=== PATIENT | female | born 1955 | race Caucasian/White ===

== ENCOUNTER 2023-02-10 13:01 | Inpatient (IN) ==
[2023-02-10] MEDS ORDERED: NS 0.9% 500 ml BAG 500 ML IV ONE (19:53)
[2023-02-10] MEDS ORDERED: Vancomycin 750 MG in NS 0.9% 250 ml 250 ML IVPB ONE (19:57)
[2023-02-10] MEDS ORDERED: cefTRIAXone 1 gm/50 mL D5W 1 GM/50 ML BAG IV SCH (20:00)
[2023-02-10] MEDS ORDERED: Vancomycin 750 MG in NS 0.9% 250 ML IVPB ONE (20:00)
[2023-02-10] MEDS ORDERED: Vancomycin per Pharmacy 1 EA NOTE FOLLOW UP SCH (20:00)
[2023-02-10 20:19] LABS: Osmolality Serum 256 mOsm/kg (275-295)
[2023-02-10 20:36] LABS: Anion Gap 10 mmol/L (2-16); Blood Urea Nitrogen 11 mg/dL (6-24); CO2 Carbon Dioxide 26 mmol/L (22-32); Chloride 88 mmol/L (101-111); Glucose 92 mg/dL (70-100); Potassium 3.5 mmol/L (3.5-5.0); Sodium 124 mmol/L (135-145)
[2023-02-10 20:58] LABS: Creatinine, Serum < 0.30 mg/dL (0.51-0.95); eGFR CKD-EPI 116.2 (>60)
[2023-02-10 20:58] LABS: Urine Appearance Cloudy; Urine Bilirubin Negative (Negative); Urine Blood 1+ (Negative); Urine Color Yellow; Urine Glucose Negative (Negative); Urine Ketones Negative (Negative); Urine Nitrite Negative (Negative); Urine Protein Negative (Negative); Urine Specific Gravity 1.013 (1.002-1.030); Urine Urobilinogen Negative (Negative)
[2023-02-10 21:15] LABS: Urine Bacteria Absent (Absent); Urine Red Blood Cell 2+(6-10/hpf) (Absent); Urine Squamous Epithelial Cell Present (Absent); Urine White Blood Cell 3+(>20/hpf) (Absent)
[2023-02-10 21:22] LABS: Urine Osmo 513 mOsm/kg (150-1150)
[2023-02-10] MEDS: Nystatin SUSPENSION 100,000 UNITS/ML UDC PO SCH (21:26)
[2023-02-10] MEDS: oxyCODONE/Acetamin 5/325 mg TAB PO SCH (21:47)
[2023-02-10 22:05] LABS: Blood Urea Nitrogen 10 mg/dL (6-24); CO2 Carbon Dioxide 25 mmol/L (22-32); Calcium 8.6 mg/dL (8.6-10.3); Chloride 91 mmol/L (101-111); Creatinine, Serum < 0.30 mg/dL (0.51-0.95); Glucose 96 mg/dL (70-100); Sodium 123 mmol/L (135-145); eGFR CKD-EPI 116.2 (>60)
[2023-02-10 22:06] LABS: Anion Gap 7 mmol/L (2-16)
[2023-02-11] MEDS: oxyCODONE/Acetamin 5/325 mg TAB PO SCH ×6 (03:06→23:25)
[2023-02-11] MEDS ORDERED: NS 0.9% 1000 ml BAG 1,000 ML IV SCH (04:00)
[2023-02-11] MEDS: Vancomycin 1000 MG in NS 0.9% 250 ML IVPB SCH ×3 (04:31→23:23)
[2023-02-11 04:57] LABS: TSH Ultra Thyroid Stim Horm 1.11 mcIU/mL (0.34-5.60)
[2023-02-11 05:08] LABS: Folate 11.74 ng/mL (5.90-24.80)
[2023-02-11 05:09] LABS: Vitamin B12 1252 pg/mL (180-914)
[2023-02-11 06:06] LABS: Hematocrit 21.3 % (35-45); Hemoglobin 7.3 g/dL (11.5-14.3); Mean Corpuscular Hemoglobin 36.3 pg (27-33); Mean Corpuscular Volume 106.7 fL (80-97); Mean Platelet Volume 7.7 fL (7.5-11.2); Platelet Count 171 10^3/uL (150-450); Red Cell Distribution Width 16.3 % (12-17)
[2023-02-11 06:10] LABS: Anion Gap 8 mmol/L (2-16); Blood Urea Nitrogen 10 mg/dL (6-24); CO2 Carbon Dioxide 25 mmol/L (22-32); Calcium 8.3 mg/dL (8.6-10.3); Chloride 90 mmol/L (101-111); Creatinine, Serum < 0.30 mg/dL (0.51-0.95); Glucose 105 mg/dL (70-100); Magnesium 1.1 mg/dL (1.9-2.7); Potassium 3.2 mmol/L (3.5-5.0); Sodium 123 mmol/L (135-145); eGFR CKD-EPI 116.2 (>60)
[2023-02-11] MEDS ORDERED: Magnesium Sulf 4 GM/100 ML IV 4,000 MG/100 ML BAG IVPB ONE (06:17)
[2023-02-11] MEDS ORDERED: Potassium Chlor 20 meq TAB.ER PO SCH (07:00)
[2023-02-11] MEDS: Nystatin SUSPENSION 100,000 UNITS/ML UDC PO SCH ×4 (09:19→23:15)
[2023-02-11] MEDS: Penicillin G Potassium IV 3,000,000 UNITS in NS 0.9% 100 ml BAG 100 ML IVPB SCH ×2 (11:17→15:44)
[2023-02-11] MEDS: KCL 20 MEQ/100 ML IVPREMIX 20 MEQ/100 ML BAG IV SCH ×2 (11:20→13:32)
[2023-02-11 16:12] LABS: Blood Urea Nitrogen 10 mg/dL (6-24); CO2 Carbon Dioxide 24 mmol/L (22-32); Calcium 8.7 mg/dL (8.6-10.3); Chloride 92 mmol/L (101-111); Creatinine, Serum 0.34 mg/dL (0.51-0.95); Glucose 100 mg/dL (70-100); Sodium 124 mmol/L (135-145); eGFR CKD-EPI 112.7 (>60)
[2023-02-11 16:13] LABS: Anion Gap 8 mmol/L (2-16)
[2023-02-11] MEDS ORDERED: Iohexol 350 (CONTRAST) 500 ML MDV IV ONE (16:39)
[2023-02-11] MEDS: Enoxaparin 60 MG/0.6 ML SYR SUBCUT SCH (17:26)
[2023-02-11] MEDS ORDERED: cefTRIAXone 2 gm/50 mL D5W 2 GM/50 ML BAG IV SCH (20:00)
[2023-02-11] MEDS: cefTRIAXone 2 gm/50 mL D5W 2 GM/50 ML BAG IV SCH (20:14)
[2023-02-11] MEDS ORDERED: Vancomycin Trough Check NOTE FOLLOW UP ONE (20:30)
[2023-02-11] MEDS ORDERED: Vancomycin 1000 MG in NS 0.9% 250 ML IVPB SCH (21:00)
[2023-02-12] MEDS: oxyCODONE/Acetamin 5/325 mg TAB PO SCH ×6 (01:55→22:37)
[2023-02-12] MEDS: Enoxaparin 60 MG/0.6 ML SYR SUBCUT SCH ×2 (04:39→17:27)
[2023-02-12] MEDS: Vancomycin 1000 MG in NS 0.9% 250 ML IVPB SCH ×3 (05:28→22:38)
[2023-02-12] MEDS: Nystatin SUSPENSION 100,000 UNITS/ML UDC PO SCH ×4 (09:25→22:43)
[2023-02-12 09:49] LABS: Calcium 8.6 mg/dL (8.6-10.3); Creatinine, Serum 0.44 mg/dL (0.51-0.95); Magnesium 1.8 mg/dL (1.9-2.7); Potassium 3.7 mmol/L (3.5-5.0); eGFR CKD-EPI 105.9 (>60)
[2023-02-12] MEDS ORDERED: Magnesium Sulfate 2 gm BAG 2 GM/50 ML BAG IVPB ONE (09:51)
[2023-02-12 09:59] LABS: Hematocrit 24.2 % (35-45); Hemoglobin 8.3 g/dL (11.5-14.3); Mean Corpuscular Hemoglobin 36.6 pg (27-33); Mean Corpuscular Hgb Conc 34.2 g/dL (31-36); Mean Corpuscular Volume 107.2 fL (80-97); Mean Platelet Volume 8.2 fL (7.5-11.2); Platelet Count 203 10^3/uL (150-450); Red Blood Count 2.26 10^6/uL (3.63-4.92); Red Cell Distribution Width 16.7 % (12-17); White Blood Count 27.1 10^3/uL (3.8-11.8)
[2023-02-12 10:50] LABS: ABS Basophils 0.1 10^3/uL (0.0-0.1); ABS Lymphocytes 0.4 10^3/uL (1.0-4.8); ABS Monocytes 0.7 10^3/uL (0.0-0.9); ABS Neutrophils 25.9 10^3/uL (1.5-7.6); Lymphocyte % 1.5 %
[2023-02-12] MEDS: cefTRIAXone 2 gm/50 mL D5W 2 GM/50 ML BAG IV SCH (22:00)
[2023-02-13] MEDS: oxyCODONE/Acetamin 5/325 mg TAB PO SCH ×4 (02:14→15:12)
[2023-02-13] MEDS ORDERED: Vancomycin Trough Check NOTE FOLLOW UP ONE (05:30)
[2023-02-13] MEDS: Enoxaparin 60 MG/0.6 ML SYR SUBCUT SCH ×2 (05:45→17:49)
[2023-02-13 06:33] LABS: ABS Eosinophils 0.1 10^3/uL (0.0-0.5); ABS Lymphocytes 0.3 10^3/uL (1.0-4.8); ABS Monocytes 0.6 10^3/uL (0.0-0.9); ABS Neutrophils 15.7 10^3/uL (1.5-7.6); ABS Nucleated RBC 0.01 10^3/ul; Eosinophil % 0.3 %; Hematocrit 23.6 % (35-45); Hemoglobin 8.1 g/dL (11.5-14.3); Lymphocyte % 2.1 %; Mean Corpuscular Hemoglobin 36.9 pg (27-33); Mean Corpuscular Hgb Conc 34.4 g/dL (31-36); Mean Corpuscular Volume 107.3 fL (80-97); Mean Platelet Volume 8.5 fL (7.5-11.2); Platelet Count 174 10^3/uL (150-450); Red Cell Distribution Width 16.9 % (12-17); White Blood Count 16.8 10^3/uL (3.8-11.8)
[2023-02-13 06:45] LABS: Calcium 8.8 mg/dL (8.6-10.3); Creatinine, Serum 0.55 mg/dL (0.51-0.95); Phosphorus 2.8 mg/dL (2.5-5.0); Potassium 3.8 mmol/L (3.5-5.0); eGFR CKD-EPI 100.4 (>60)
[2023-02-13] MEDS: Vancomycin 1000 MG in NS 0.9% 250 ML IVPB SCH ×2 (07:06→14:16)
[2023-02-13] MEDS ORDERED: Potassium Chloride LIQUID 20 MEQ/15 ML LIQUID PO ONE (10:15)
[2023-02-13] MEDS: Nystatin SUSPENSION 100,000 UNITS/ML UDC PO SCH ×6 (10:50→21:09)
[2023-02-13] MEDS ORDERED: oxyCODONE/Acetamin 5/325 mg TAB PO SCH (16:00)
[2023-02-13] MEDS: cefTRIAXone 2 gm/50 mL D5W 2 GM/50 ML BAG IV SCH (20:05)
[2023-02-14] MEDS: Vancomycin 1000 MG in NS 0.9% 250 ML IVPB SCH (02:01)
[2023-02-14] MEDS: oxyCODONE/Acetamin 5/325 mg TAB PO PRN ×3 (02:02→22:09)
[2023-02-14] MEDS: Enoxaparin 60 MG/0.6 ML SYR SUBCUT SCH ×2 (05:44→17:11)
[2023-02-14 06:32] LABS: Calcium 8.5 mg/dL (8.6-10.3); Creatinine, Serum 0.65 mg/dL (0.51-0.95); Potassium 3.9 mmol/L (3.5-5.0); eGFR CKD-EPI 96.4 (>60)
[2023-02-14 08:44] LABS: ABS Lymphocytes 0.3 10^3/uL (1.0-4.8); ABS Monocytes 0.7 10^3/uL (0.0-0.9); ABS Neutrophils 11.8 10^3/uL (1.5-7.6); Eosinophil % 0.2 %; Hematocrit 21.5 % (35-45); Hemoglobin 7.3 g/dL (11.5-14.3); Mean Corpuscular Hemoglobin 36.6 pg (27-33); Mean Corpuscular Volume 107.8 fL (80-97); Mean Platelet Volume 8.6 fL (7.5-11.2); Platelet Count 156 10^3/uL (150-450); Red Blood Count 1.99 10^6/uL (3.63-4.92); White Blood Count 12.9 10^3/uL (3.8-11.8)
[2023-02-14] MEDS: Nystatin SUSPENSION 100,000 UNITS/ML UDC PO SCH ×4 (11:00→22:10)
[2023-02-14] MEDS: cefTRIAXone 2 gm/50 mL D5W 2 GM/50 ML BAG IV SCH (22:03)
[2023-02-15] MEDS: Enoxaparin 60 MG/0.6 ML SYR SUBCUT SCH ×2 (04:57→17:44)
[2023-02-15 07:36] LABS: ABS Eosinophils 0.1 10^3/uL (0.0-0.5); ABS Lymphocytes 0.3 10^3/uL (1.0-4.8); ABS Monocytes 0.7 10^3/uL (0.0-0.9); Calcium 8.1 mg/dL (8.6-10.3); Creatinine, Serum 0.58 mg/dL (0.51-0.95); Eosinophil % 0.6 %; Hematocrit 22.9 % (35-45); Hemoglobin 7.8 g/dL (11.5-14.3); Lymphocyte % 2.6 %; Mean Corpuscular Hemoglobin 36.7 pg (27-33); Mean Corpuscular Hgb Conc 34.2 g/dL (31-36); Mean Corpuscular Volume 107.3 fL (80-97); Mean Platelet Volume 8.6 fL (7.5-11.2); Platelet Count 144 10^3/uL (150-450); Potassium 3.5 mmol/L (3.5-5.0); Red Blood Count 2.13 10^6/uL (3.63-4.92); Red Cell Distribution Width 16.9 % (12-17); White Blood Count 13.2 10^3/uL (3.8-11.8); eGFR CKD-EPI 99.1 (>60)
[2023-02-15] MEDS: Nystatin SUSPENSION 100,000 UNITS/ML UDC PO SCH ×4 (09:23→22:47)
[2023-02-15] MEDS ORDERED: Vancomycin Trough Check NOTE FOLLOW UP ONE (13:30)
[2023-02-15] MEDS: ceFAZolin 2 GM PREMIX 2 GM/50 ML BAG IV SCH ×2 (15:29→22:52)
[2023-02-15] MEDS: Oral Rinse (Biotene)(NF) 237 ML or 473 ML ORAL RINSE BTL MT SCH (22:50)
[2023-02-16] MEDS: Oral Rinse (Biotene)(NF) 237 ML or 473 ML ORAL RINSE BTL MT SCH (02:10)
[2023-02-16] MEDS: oxyCODONE/Acetamin 5/325 mg TAB PO PRN (02:17)
[2023-02-16] MEDS: Enoxaparin 60 MG/0.6 ML SYR SUBCUT SCH ×2 (05:59→18:25)
[2023-02-16] MEDS: ceFAZolin 2 GM PREMIX 2 GM/50 ML BAG IV SCH ×3 (06:09→22:39)
[2023-02-16 07:37] LABS: ABS Lymphocytes 0.6 10^3/uL (1.0-4.8); ABS Monocytes 0.8 10^3/uL (0.0-0.9); ABS Neutrophils 9.6 10^3/uL (1.5-7.6); Eosinophil % 0.3 %; Hematocrit 21.7 % (35-45); Hemoglobin 7.4 g/dL (11.5-14.3); Lymphocyte % 5.1 %; Mean Corpuscular Hemoglobin 36.9 pg (27-33); Mean Corpuscular Hgb Conc 34.4 g/dL (31-36); Mean Corpuscular Volume 107.3 fL (80-97); Mean Platelet Volume 8.2 fL (7.5-11.2); Platelet Count 146 10^3/uL (150-450); Red Blood Count 2.02 10^6/uL (3.63-4.92); Red Cell Distribution Width 17.1 % (12-17)
[2023-02-16 08:57] LABS: Calcium 7.9 mg/dL (8.6-10.3); Creatinine, Serum 0.66 mg/dL (0.51-0.95); Potassium 3.5 mmol/L (3.5-5.0); eGFR CKD-EPI 96.1 (>60)
[2023-02-16] MEDS: Nystatin SUSPENSION 100,000 UNITS/ML UDC PO SCH ×5 (10:24→22:39)
[2023-02-16] MEDS ORDERED: CMC:Saliva Substitute (NF) 1 SPRAY BTL MT PRN (10:55)
[2023-02-17] MEDS: Enoxaparin 60 MG/0.6 ML SYR SUBCUT SCH ×2 (05:19→15:45)
[2023-02-17] MEDS: Senna TAB 8.6 mg TAB PO SCH (05:20)
[2023-02-17] MEDS: Polyethylene Glycol 3350 17 GM PACKET PO SCH (05:20)
[2023-02-17 08:06] LABS: Creatinine, Serum 0.51 mg/dL (0.51-0.95); Magnesium 1.6 mg/dL (1.9-2.7); Potassium 3.5 mmol/L (3.5-5.0); eGFR CKD-EPI 102.2 (>60)
[2023-02-17] MEDS ORDERED: Magnesium Sulfate 2 gm BAG 2 GM/50 ML BAG IVPB ONE (08:12)
[2023-02-17] MEDS: ceFAZolin 2 GM PREMIX 2 GM/50 ML BAG IV SCH ×3 (08:28→22:56)
[2023-02-17] MEDS: Nystatin SUSPENSION 100,000 UNITS/ML UDC PO SCH ×3 (08:35→15:25)
[2023-02-17 09:30] LABS: Hematocrit 23.3 % (35-45); Hemoglobin 8.2 g/dL (11.5-14.3); Macrocytosis 2+; Mean Corpuscular Hemoglobin 39.9 pg (27-33); Mean Corpuscular Volume 113.9 fL (80-97); Mean Platelet Volume 8.4 fL (7.5-11.2); Platelet Count 139 10^3/uL (150-450); Red Blood Count 2.05 10^6/uL (3.63-4.92); Red Cell Distribution Width 17.3 % (12-17); Toxic Granulation 2+; White Blood Count 10.5 10^3/uL (3.8-11.8)
[2023-02-17 09:43] LABS: ABS Basophils 0.1 10^3/ul (0.0-0.1); ABS Lymphocytes 0.3 10^3/ul (1.0-4.8); ABS Monocytes 0.1 10^3/ul (0.0-0.9)
[2023-02-17] MEDS ORDERED: Magnesium Sulfate IV 1GM/100ML 1 GM/100 ML BAG IV ONE (10:12)
[2023-02-17] MEDS: CMC:Saliva Substitute (NF) 1 SPRAY BTL MT SCH ×13 (10:59→22:56)
[2023-02-17] MEDS: oxyCODONE/Acetamin 5/325 mg TAB PO PRN ×2 (15:21→23:09)
[2023-02-18] MEDS: CMC:Saliva Substitute (NF) 1 SPRAY BTL MT SCH ×20 (00:03→23:49)
[2023-02-18] MEDS: Enoxaparin 60 MG/0.6 ML SYR SUBCUT SCH ×2 (05:53→17:02)
[2023-02-18] MEDS: ceFAZolin 2 GM PREMIX 2 GM/50 ML BAG IV SCH ×3 (07:51→23:01)
[2023-02-18 08:40] LABS: ABS Lymphocytes 0.5 10^3/uL (1.0-4.8); ABS Monocytes 0.6 10^3/uL (0.0-0.9); ABS Neutrophils 9.7 10^3/uL (1.5-7.6); ABS Nucleated RBC 0.01 10^3/ul; Eosinophil % 0.4 %; Hematocrit 25.8 % (35-45); Lymphocyte % 4.7 %; Mean Corpuscular Hemoglobin 39.1 pg (27-33); Mean Corpuscular Volume 111.9 fL (80-97); Mean Platelet Volume 8.3 fL (7.5-11.2); Platelet Count 171 10^3/uL (150-450); Red Cell Distribution Width 17.5 % (12-17)
[2023-02-18 08:53] LABS: Calcium 8.3 mg/dL (8.6-10.3); Creatinine, Serum 0.56 mg/dL (0.51-0.95); Potassium 3.6 mmol/L (3.5-5.0)
[2023-02-18] MEDS: oxyCODONE/Acetamin 5/325 mg TAB PO PRN ×2 (09:11→23:07)
[2023-02-18] MEDS: Polyethylene Glycol 3350 17 GM PACKET PO SCH (09:11)
[2023-02-18] MEDS: Senna TAB 8.6 mg TAB PO SCH (09:12)
[2023-02-19] MEDS: CMC:Saliva Substitute (NF) 1 SPRAY BTL MT SCH ×13 (00:49→16:26)
[2023-02-19] MEDS ORDERED: Enoxaparin 80 MG/0.8 ML SYR SUBCUT SCH (06:00)
[2023-02-19 06:21] LABS: Calcium 7.8 mg/dL (8.6-10.3); Creatinine, Serum 0.5 mg/dL (0.51-0.95); Magnesium 1.7 mg/dL (1.9-2.7); Phosphorus 2.5 mg/dL (2.5-5.0); Potassium 3.6 mmol/L (3.5-5.0); eGFR CKD-EPI 102.7 (>60)
[2023-02-19] MEDS: ceFAZolin 2 GM PREMIX 2 GM/50 ML BAG IV SCH ×2 (08:08→15:47)
[2023-02-19] MEDS: Polyethylene Glycol 3350 17 GM PACKET PO SCH (08:10)
[2023-02-19] MEDS: Senna TAB 8.6 mg TAB PO SCH (08:10)
[2023-02-19] MEDS ORDERED: Magnesium Sulfate 2 gm BAG 2 GM/50 ML BAG IVPB ONE (08:17)
[2023-02-19] MEDS ORDERED: Magnesium Sulfate IV 1GM/100ML 1 GM/100 ML BAG IV ONE (10:17)
[2023-02-19] MEDS: oxyCODONE/Acetamin 5/325 mg TAB PO PRN (10:45)
[2023-02-19 13:58] VITALS: BP 91/59
== END 2023-02-19 16:50 | disposition home or self-care (01) | DRG 872 ==
LOC: ED 13:01 → EDHOLD 13:01 → SUATTDRO 19:21 → MED 02-11 17:41 → SUATTDRO 02-12 13:30
PROVIDERS: ADMIT Internal Medicine; ATTEND Internal Medicine